=== PATIENT | female | born 1960 | race Caucasian/White ===

== ENCOUNTER 2019-02-18 18:52 | Emergency (ER) | payer BC | END 2019-02-18 22:10 | disposition home or self-care (01) | LOC: ERS 18:52 | DX: H43.12 Vitreous hemorrhage, left eye (principal); E11.9 Type 2 diabetes mellitus without complications; F41.9 Anxiety disorder, unspecified; Z79.899 Other long term (current) drug therapy; Z79.84 Long term (current) use of oral hypoglycemic drugs | CPT/HCPCS: 99283 ==

== ENCOUNTER 2020-06-01 08:25 | Outpatient (CLI) | payer BC ==
--- NOTE | 2020-06-01 08:50 | ULT ---
Exam: Bilateral renal ultrasound HISTORY: Chronic kidney disease COMPARISON: None FINDINGS: Right kidney: Normal cortical echotexture. No hydronephrosis. There is renal cortical thinning. Right kidney measurements: 11.4 x 5.2 x 5.0 cm. Left kidney: Normal cortical echotexture. No hydronephrosis Left kidney measurements 5.9 x 5.5 x 11.9 cm. Urinary bladder: Normal mucosa. IMPRESSION: No hydronephrosis.
== END 2020-06-01 08:26 | disposition home or self-care (01) ==
LOC: BICULT 08:25
PROVIDERS: ATTEND Internal Medicine Nephrology
DX: N18.9 Chronic kidney disease, unspecified (principal)
CPT/HCPCS: 36415; 76770; 80048

== ENCOUNTER 2020-09-06 09:23 | Outpatient (CLI) | payer BC | END 2020-09-06 09:24 | disposition home or self-care (01) | LOC: DTY/OP 09:23 | PROVIDERS: ATTEND Surgery | DX: E66.01 Morbid (severe) obesity due to excess calories (principal) | CPT/HCPCS: 97802 ==

== ENCOUNTER 2020-10-05 09:19 | Outpatient (CLI) | payer BC | END 2020-10-05 09:20 | disposition home or self-care (01) | LOC: DTY/OP 09:19 | PROVIDERS: ATTEND Surgery | DX: E66.01 Morbid (severe) obesity due to excess calories (principal) | CPT/HCPCS: 97802 ==

== ENCOUNTER 2020-10-17 11:22 | Outpatient (CLI) | payer BC | END 2020-10-17 11:23 | disposition home or self-care (01) | LOC: BICRAD 11:22 | PROVIDERS: ATTEND Podiatrist | DX: M72.2 Plantar fascial fibromatosis (principal); M77.31 Calcaneal spur, right foot ==

== ENCOUNTER 2020-10-31 09:52 | Outpatient (CLI) | payer BC | END 2020-10-31 09:53 | disposition home or self-care (01) | LOC: DTY/OP 09:52 | PROVIDERS: ATTEND Surgery | DX: E66.01 Morbid (severe) obesity due to excess calories (principal) | CPT/HCPCS: 97802 ==

== ENCOUNTER 2020-12-07 07:44 | Outpatient (CLI) | payer BC ==
[2020-12-07 10:04] LABS: #Eosinphils 0.3 10x3/uL (0.0-0.5); #Monocytes 0.6 10x3/uL (0.0-1.1); #Neutrophils 3.9 10x3/uL (1.5-8.4); %Basophils 0.5 % (0.0-2.0); %Eosinophils 4.3 % (0.0-6.0); %Lymphocytes 34.7 % (18.0-47.0); %Monocytes 7.6 % (0.0-10.0); %Neutrophils 52.6 % (40.0-75.0); Hemoglobin 14.1 g/dL (12.0-15.5); Mean Corpuscular HGB CONC 32.6 g/dL (32.0-36.0); Mean Corpuscular Hemoglobin 30.2 pg (27.0-33.0); Mean Corpuscular Volume 92.5 fl (81.6-98.3); Mean Platelet Volume 9.7 fl (7.4-10.4); Platelet Count 323 10x3/uL (150-450); RBC Distribution Width 12.6 % (11.5-14.5); Red Blood Cell (RBC) Count 4.67 10x6/uL (3.90-5.03); White Blood Cell (WBC) Count 7.5 10x3/uL (3.5-10.5)
[2020-12-07 10:49] LABS: ALT (SGPT) 24 U/L (8-55); AST (SGOT) 17 U/L (5-34); Albumin 4.2 g/dL (3.5-5.0); Alkaline Phosphatase 168 U/L (40-110); Anion Gap 15 mmol/L (10-20); BUN (Urea Nitrogen) 16 mg/dL (9.8-20.1); Bilirubin, Total 0.3 mg/dL (0.2-1.2); Calc. Creatinine Clearance 0 mL/min (70-130); Carbon Dioxide 25 mmol/L (22-29); Chloride 106 mmol/L (98-107); Globulin 2.5 g/dL (2.4-3.5); Glucose 111 mg/dL (70-105); Potassium 4.4 mmol/L (3.5-5.1); Protein, Total 6.7 g/dL (6.0-8.3); Sodium 142 mmol/L (136-145)
[2020-12-07 12:05] LABS: Hemoglobin A1c 6.2 % (4.0-6.0)
[2020-12-07 15:39] LABS: SARS-CoV-2 PCR by NAA Not Detected (NotDetected)
== END 2020-12-07 07:45 | disposition home or self-care (01) ==
LOC: LABBT 07:44
PROVIDERS: ATTEND Surgery
DX: Z01.818 Encounter for other preprocedural examination (principal); E66.01 Morbid (severe) obesity due to excess calories; Z20.822 Contact with and (suspected) exposure to COVID-19
CPT/HCPCS: 71046; 80053; 83036; 85025; 87635; 93005; 93010; U0003; U0005

== ENCOUNTER 2020-12-07 07:45 | Inpatient (IN) | payer BC ==
[2020-12-12] MEDS ORDERED: Lidocaine 2% Jelly 5 ML TUBE ONE (06:45)
[2020-12-12] MEDS ORDERED: Fentanyl 100 MCG/2 ML VIAL ONE ×2 (06:45→09:19)
[2020-12-12] MEDS ORDERED: Levofloxacin 500 mg/D5W 100 ml Premix Bag ONE (07:02)
[2020-12-12] MEDS ORDERED: Heparin 5,000 UNITS/ML VIAL ONE (07:02)
[2020-12-12] MEDS ORDERED: Midazolam HCl 2 mg/2 ml Vial ONE (07:02)
[2020-12-12] MEDS ORDERED: Lidocaine 1% w/Epinephrine 1:100K 20 ML VIAL ONE (07:05)
[2020-12-12] MEDS ORDERED: Bupivacaine 0.25% HCL 30 ML VIAL ONE (07:05)
[2020-12-12] MEDS ORDERED: Ketorolac Tromethamine 30 MG/ML VIAL ONE (07:38)
[2020-12-12] MEDS ORDERED: PROPOFOL 200 MG/20 ML VIAL ONE (07:38)
[2020-12-12] MEDS ORDERED: Rocuronium Bromide 10 MG/ML (10ML VIAL) ONE (07:38)
[2020-12-12] MEDS ORDERED: Glycopyrrolate 0.2 MG/ML 5 ML SYRINGE ONE (07:38)
[2020-12-12] MEDS ORDERED: Ondansetron PF 4 MG/2 ML Vial ONE (07:38)
[2020-12-12] MEDS ORDERED: PHENYLEPHRINE-NS 100 MCG/ML 10 ML SYRINGE ONE (07:38)
[2020-12-12] MEDS ORDERED: ePHEDrine Sulfate 50 MG/10 ML VIAL ONE (07:38)
[2020-12-12] MEDS ORDERED: Lidocaine 1% PF 5 ML VIAL ONE (07:38)
[2020-12-12] MEDS ORDERED: Promethazine HCl 25 MG/ML VIAL IM PRN ×3 (09:00→09:36)
[2020-12-12] MEDS ORDERED: Dextrose 5% in Water 1,000 ML IV PRN (09:00)
[2020-12-12] MEDS ORDERED: diphenhydrAMINE 50 MG/ML VIAL IVP PRN ×2 (09:00→09:36)
[2020-12-12] MEDS ORDERED: Dextrose 50% Abboject 50 ML SYRINGE SLOW IVP PRN (09:00)
[2020-12-12] MEDS ORDERED: Ondansetron PF 4 MG/2 ML Vial IVP PRN (09:00)
[2020-12-12] MEDS ORDERED: hydrALAZINE 20 MG/ML VIAL SLOW IVP PRN (09:00)
[2020-12-12] MEDS ORDERED: Hydrocodone-Acetamin 15 ML UDCUP PO PRN (09:00)
[2020-12-12] MEDS ORDERED: Ondansetron HCl/PF 4 MG/2 ML Vial IVP PRN (09:07)
[2020-12-12] MEDS ORDERED: Promethazine HCl 25 MG/ML VIAL SLOW IVP PRN (09:07)
[2020-12-12] MEDS ORDERED: Promethazine HCl 25 MG/ML VIAL ONE (09:32)
[2020-12-12] MEDS ORDERED: diphenhydrAMINE 50 MG/ML VIAL IM PRN (09:36)
[2020-12-12] MEDS ORDERED: fentaNYL Citrate/PF 2,000 MCG in Sodium Chloride 0.9% 60 ML IV PRN (09:36)
[2020-12-12] MEDS ORDERED: Zolpidem Tartrate 5 MG TAB PO PRN (09:36)
[2020-12-12] MEDS ORDERED: diphenhydrAMINE 25 MG CAP PO PRN (09:36)
[2020-12-12] MEDS ORDERED: Naloxone HCl 0.4 mg/ml Vial IV PRN (09:36)
[2020-12-12] MEDS ORDERED: Communication Order-Pharmacy FS SCH (09:45)
[2020-12-12 13:15] VITALS: BMI 37.8
[2020-12-12] MEDS: D5 1/2 NS w/20 mEq KCL 1,000 ML IV SCH ×2 (14:07→15:56)
[2020-12-12] MEDS: Pantoprazole 40 MG VIAL IVP SCH (14:07)
[2020-12-12] MEDS: Ondansetron PF 4 MG/2 ML Vial IVP PRN ×2 (15:24→22:58)
[2020-12-13] MEDS: D5 1/2 NS w/20 mEq KCL 1,000 ML IV SCH ×3 (05:31→15:35)
[2020-12-13] MEDS: Ondansetron PF 4 MG/2 ML Vial IVP PRN (05:31)
[2020-12-13 05:37] LABS: #Eosinphils 0.1 thou/uL (0.0-0.7); #Lymphocytes 1.8 thou/uL (1.20-3.40); #Monocytes 0.9 thou/uL (0.11-0.59); #Neutrophils 8.5 thou/uL (1.40-6.50); %Basophils 0.2 % (0.0-1.0); %Eosinophils 0.5 % (0.0-10.0); %Lymphocytes 15.8 % (21.0-51.0); %Monocytes 7.6 % (0.0-10.0); %Neutrophils 75.9 % (42.0-75.0); Mean Corpuscular Hemoglobin 29.7 pg (27.0-31.0); Mean Platelet Volume 7.1 fL (7.4-10.4); Platelet Count 252 thou/uL (130-400); RBC Distribution Width 11.8 % (11.5-14.5); Red Blood Cell (RBC) Count 4.36 mill/uL (4.20-5.40); White Blood Cell (WBC) Count 11.2 thou/uL (4.8-10.8)
[2020-12-13 05:53] LABS: Anion Gap 12 mmol/L (10-20); BUN (Urea Nitrogen) 5 mg/dL (9.8-20.1); Calc. Creatinine Clearance 162 mL/min (70-130); Calcium 8.6 mg/dL (7.8-10.44); Carbon Dioxide 24 mmol/L (22-29); Chloride 105 mmol/L (98-107); Glucose 151 mg/dL (70-105); Potassium 3.3 mmol/L (3.5-5.1); Sodium 138 mmol/L (136-145)
[2020-12-13] MEDS ORDERED: Bisacodyl 10 MG SUPP PR SCH (08:45)
[2020-12-13] MEDS: Pantoprazole 40 MG VIAL IVP SCH (09:05)
[2020-12-13] MEDS ORDERED: Hydrocodone-Acetamin 15 ML UDCUP PO PRN (13:16)
[2020-12-13] MEDS ORDERED: clonazePAM 0.5 MG TAB PO PRN (13:18)
[2020-12-13] MEDS ORDERED: Ondansetron ODT 4 MG TAB PO PRN (13:18)
[2020-12-13 16:26] VITALS: BP 121/85; TEMP 98.1
[2020-12-13] MEDS ORDERED: Bisacodyl 10 MG SUPP PR PRN (16:30)
== END 2020-12-13 18:30 | disposition home or self-care (01) | DRG 621 ==
LOC: SURG A 12-12 06:07 → EDSTATUS 12-12 13:00 → SURG A 12-12 13:08
PROVIDERS: ADMIT Surgery; ATTEND Surgery
PROC: 0DB64Z3 Excision of Stomach, Percutaneous Endoscopic Approach, Vertical (ICD-10-PCS; principal; 2020-12-12)
PROC: 0BQT4ZZ Repair Diaphragm, Percutaneous Endoscopic Approach (ICD-10-PCS; 2020-12-12)
PROC: 0DJ08ZZ Inspection of Upper Intestinal Tract, Via Natural or Artificial Opening Endoscopic (ICD-10-PCS; 2020-12-12)
DX: E66.01 Morbid (severe) obesity due to excess calories (principal); Z68.37 Body mass index [BMI] 37.0-37.9, adult; K44.9 Diaphragmatic hernia without obstruction or gangrene; Z20.822 Contact with and (suspected) exposure to COVID-19; K62.4 Stenosis of anus and rectum; E11.9 Type 2 diabetes mellitus without complications; I10 Essential (primary) hypertension; E78.5 Hyperlipidemia, unspecified; M19.90 Unspecified osteoarthritis, unspecified site; Z79.899 Other long term (current) drug therapy; Z79.84 Long term (current) use of oral hypoglycemic drugs; Z90.710 Acquired absence of both cervix and uterus
CPT/HCPCS: 36415; 80048; 85025; 88307; C9113; J1644; J1885; J1956; J2250; J2405; J2550; J2704; J3010; J3480; Q0162; S0020

== ENCOUNTER 2021-03-27 08:17 | Outpatient (CLI) | payer BC ==
[2021-03-27 09:24] LABS: #Eosinphils 0.3 10x3/uL (0.0-0.5); #Monocytes 0.5 10x3/uL (0.0-1.1); %Basophils 0.7 % (0.0-2.0); %Lymphocytes 34.9 % (18.0-47.0); %Monocytes 8.5 % (0.0-10.0); %Neutrophils 50.7 % (40.0-75.0); Hemoglobin 14.5 g/dL (12.0-15.5); Mean Corpuscular HGB CONC 32.8 g/dL (32.0-36.0); Mean Corpuscular Hemoglobin 29.7 pg (27.0-33.0); Mean Corpuscular Volume 90.4 fl (81.6-98.3); Mean Platelet Volume 9.4 fl (7.4-10.4); Platelet Count 285 10x3/uL (150-450); RBC Distribution Width 12.8 % (11.5-14.5); Red Blood Cell (RBC) Count 4.89 10x6/uL (3.90-5.03)
[2021-03-28 00:26] LABS: SARS-CoV-2 PCR by NAA Not Detected (NotDetected)
== END 2021-03-27 08:18 | disposition home or self-care (01) ==
LOC: LABBT 08:17
PROVIDERS: ATTEND Surgery
DX: Z01.812 Encounter for preprocedural laboratory examination (principal); K43.9 Ventral hernia without obstruction or gangrene; Z20.822 Contact with and (suspected) exposure to COVID-19
CPT/HCPCS: 85025; U0003; U0005

== ENCOUNTER 2021-06-27 18:00 | Outpatient (CLI) | payer BC | END 2021-06-27 18:01 | disposition home or self-care (01) | LOC: SLEEPLAB 18:00 | PROVIDERS: ATTEND Internal Medicine Critical Care Medicine | DX: G47.33 Obstructive sleep apnea (adult) (pediatric) (principal); R53.83 Other fatigue; R06.83 Snoring; G47.00 Insomnia, unspecified | CPT/HCPCS: 95806 ==

== ENCOUNTER 2025-06-07 10:09 | Outpatient (CLI) | payer BC | END 2025-06-07 10:10 | disposition home or self-care (01) | LOC: BICRAD 10:09 | PROVIDERS: ATTEND Family Medicine | DX: M79.672 Pain in left foot (principal) ==